=== PATIENT | female | born 1990 | race Caucasian/White ===

== ENCOUNTER 2016-09-11 17:08 | Emergency (ER) | payer BC, OTHER ==
[2016-09-11 17:31] VITALS: BP 135/79; PULSE 97; RESP 18; TEMP 97.6
--- NOTE | 2016-09-11 17:41 | ED ---
Skin/Abscess/FB HPI - General Chief complaint: Skin/Abscess/Foreign Body Stated complaint: POSS PSORIASIS INFECTION, ENFLAMED Time Seen by Provider: 09/11/16 17:20 Source: patient, RN notes reviewed Mode of arrival: ambulatory Limitations: no limitations - History of Present Illness Initial comments: 26 yo female presents to the ER with cc of right foot redness and swelling. Patient states this started last 2 days. She has noticed some swelling. Patient states that it is somewhat painful. She does have psoriasis but states that she has some yellowing of the plaques over the right ankle. Patient states she hasn't noticed any purulent drainage. Family states they're concerned due to the increased redness of the area so they thought that they should be evaluated. Patient has had no fever or chills. There is no calf pain with this. She has a history of this in the past. Patient denies any recent fever, chills, shortness of breath, chest pain, back pain, abdominal pain , nausea vomiting, numbness or tingling, dysuria or hematuria, constipation or diarrhea, headaches or visual changes, or any other current symptoms. - Related Data Previous Rx's Medication Instructions Recorded Cephalexin [Keflex] 500 mg PO Q6HR #40 cap 09/11/16 Allergies Allergy/AdvReac Type Severity Reaction Status Date / Time Penicillins Allergy Unknown Verified 09/11/16 17:31 Review of Systems ROS Statement: Those systems with pertinent positive or pertinent negative responses have been documented in the HPI. ROS Other: All systems not noted in ROS Statement are negative. 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 Absent: tenderness, meningismus, lymphadenopathy Respiratory exam: Present: normal lung sounds bilaterally. Absent: respiratory distress, wheezes, rales, rhonchi, stridor Cardiovascular Exam: Present: regular rate, normal rhythm, normal heart sounds. Absent: systolic murmur, diastolic murmur, rubs, gallop, clicks Neurological exam: Present: alert, oriented X3, CN II-XII intact. Absent: motor sensory deficit Psychiatric exam: Present: normal affect, normal mood Skin exam: Present: warm, dry, other (Patient appears to have redness and crusting to the right ankle. There does appear to be minimal swelling to the right foot noted. Patient does have extensive psoriasis throughout) Course Vital Signs 09/11/16 17:27 Temperature 97.6 F Pulse Rate 97 Respiratory 18 Rate Blood Pressure 135/79 O2 Sat by Pulse 100 Oximetry Medical Decision Making - Medical Decision Making 26-year-old female presents to emergency room with what is concerning for possible cellulitis associated psoriasis to the right ankle. This we will add Keflex the patient's treatment. She does have follow-up for her psoriasis. We discussed. We discussed return parameters with watch for. Patient stated they understood and all questions have been answered. They will be discharged. Disposition Clinical Impression: Cellulitis of right ankle Disposition: HOME SELF-CARE Condition: Stable Instructions: Cellulitis (ED) Additional Instructions: Please use medication as discussed. Please follow up with family doctor if symptoms have not improved over the next two days. Please return to the emergency room if your symptoms increase or worsen or for any other concerns. Prescriptions: Cephalexin [Keflex] 500 mg PO Q6HR #40 cap Referrals: Mervin Mills DO [Primary Care Provider] - 1-2 days Time of Disposition: 17:40
== END 2016-09-11 17:53 | disposition home or self-care (01) ==
LOC: EC 17:08
DX: L03.115 Cellulitis of right lower limb (principal); F17.200 Nicotine dependence, unspecified, uncomplicated; Z88.0 Allergy status to penicillin
CPT/HCPCS: 99283

== ENCOUNTER 2016-09-18 21:01 | Emergency (ER) | payer OTHER ==
[2016-09-18 21:17] VITALS: BP 125/71; PULSE 94; RESP 18; TEMP 97
--- NOTE | 2016-09-18 21:53 | ED ---
General Adult HPI - General Chief complaint: Skin/Abscess/Foreign Body Stated complaint: foot pain-revisit Time Seen by Provider: 09/18/16 21:26 Source: patient, family, RN notes reviewed Mode of arrival: ambulatory Limitations: no limitations - History of Present Illness Initial comments: Patient 26-year-old female was seen a few past medical history for psoriasis, who presents emergency room today with a chief complaint of possible infection to the room the right ankle. Patient does admit that she was seen here the emergency room a week ago and started on Keflex to cover for a cellulitis infection. She states it has been some improvement of the swelling but still having increased pain in the redness is still present. States she's concerned. Patient states she does not want to get any worse. She denies any other complaints or symptoms. Patient denies any recent fever, chills, shortness of breath, chest pain, back pain, abdominal pain, nausea or vomiting, numbness or tingling, dysuria or hematuria, constipation or diarrhea, headaches or visual changes, or any other complaints. - Related Data Home Medications Medication Instructions Recorded Confirmed Calcipotriene 1 applic TOPICAL QAM 09/18/16 09/18/16 Minocycline HCl [Minocin] 100 mg PO DAILY 09/18/16 09/18/16 Venlafaxine HCl [Effexor XR] 75 mg PO DAILY 09/18/16 09/18/16 Previous Rx's Medication Instructions Recorded Cephalexin [Keflex] 500 mg PO Q6HR #40 cap 09/11/16 Hydrocodone/Acetaminophen [[place] 1 each PO HS PRN #6 tab 09/18/16 5-325] Mupirocin 2% Oint [Bactroban Oint] 1 applic TOPICAL TID #1 gm 09/18/16 Allergies Allergy/AdvReac Type Severity Reaction Status Date / Time latex Allergy Rash/Hives Verified 09/18/16 21:45 Penicillins Allergy Rash/Hives Verified 09/18/16 21:45 Review of Systems ROS Statement: Those systems with pertinent positive or pertinent negative responses have been documented in the HPI. ROS Other: All systems not noted in ROS Statement are negative. 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 Eye: Pupils are equal, round and reactive to light, extra-ocular movements are intact. No nystagmus. There is normal conjunctiva bilaterally. No signs of icterus. Ears, nose, mouth and throat: There are moist mucous membranes and no oral lesions. Neck: The neck is supple, there is no tenderness or JVD. Cardiovascular: There is a regular rate and rhythm. No murmur, rub or gallop is appreciated. Respiratory: Lungs are clear to auscultation, respirations are non-labored, breath sounds are equal. No wheezes, stridor, rales, or rhonchi. Musculoskeletal: Normal ROM, no tenderness. Strength 5/5. Sensation intact. Pulses equal bilaterally 2+. Neurological: A&O x 3. CN II-XII intact, There are no obvious motor or sensory deficits. Coordination appears grossly intact. Speech is normal. Skin: Psoriasis patches throughout the body. Increased redness and skin breakdown to the right ankle area. There is no lymphangitic streaking. There is no drainage or weeping. Warmth. Psychiatric: Cooperative, appropriate mood & affect, normal judgment. Limitations: no limitations Course Vital Signs 09/18/16 21:12 Temperature 97 F L Pulse Rate 94 Respiratory 18 Rate Blood Pressure 125/71 O2 Sat by Pulse 97 Oximetry Medical Decision Making - Medical Decision Making At this time patient's been on Keflex. There does appear to be possible secondary infection. Start patient on a topical antibiotics. Did describe this with patient about treatments at this time and not wanting to change antibiotic completely. Advised to use topical antibiotics if there is improvement over the next 2 days. Advised patient to elevate at least 3 times daily. Advised to return if symptoms are not improving or if symptoms increase or worsen. Disposition Clinical Impression: Cellulitis Disposition: HOME SELF-CARE Condition: Good Instructions: Cellulitis (ED) Additional Instructions: Please use medication as discussed. Please follow-up with family doctor in the next 2 days of symptoms have not improved. Please return to emergency room if the symptoms increase or worsen or for any other concerns. Prescriptions: Hydrocodone/Acetaminophen [[place] 5-325] 1 each PO HS PRN #6 tab PRN Reason: Pain Mupirocin 2% Oint [Bactroban Oint] 1 applic TOPICAL TID #1 gm Time of Disposition: 21:52
== END 2016-09-18 22:01 | disposition home or self-care (01) ==
LOC: EC 21:01
DX: L03.115 Cellulitis of right lower limb (principal); L40.9 Psoriasis, unspecified; F32.9 Major depressive disorder, single episode, unspecified; F41.9 Anxiety disorder, unspecified; F17.200 Nicotine dependence, unspecified, uncomplicated; Z79.899 Other long term (current) drug therapy; Z91.040 Latex allergy status; Z88.0 Allergy status to penicillin
CPT/HCPCS: 99283

== ENCOUNTER 2016-09-25 17:08 | Emergency (ER) | payer OTHER ==
[2016-09-25 17:15] VITALS: RESP 16; TEMP 97
--- NOTE | 2016-09-25 17:57 | ED ---
Skin/Abscess/FB HPI <Desmond Acharya - Last Filed: 09/25/16 18:15> - General Source: patient, RN notes reviewed Mode of arrival: wheelchair Limitations: no limitations <Lana Grimaldo - Last Filed: 09/25/16 23:50> - General Chief complaint: Skin/Abscess/Foreign Body Stated complaint: poss infection on rt foot Time Seen by Provider: 09/25/16 17:27 - History of Present Illness Initial comments: Patient's 26-year-old female presents to the emergency room for evaluation of right lower extremity pain and swelling. Patient states she's had a flare of psoriasis for the past few weeks. Patient states she was here 2 weeks ago for right ankle pain and swelling and was given Keflex for secondary infection from her psoriasis. Patient states she took the antibiotic it wasn't getting any better so she came back here again last week. Patient states she was then placed on mupirocin ointment. Patient states mupirocin ointment slightly relieved her symptoms but she ran out. Patient states she has a history of leukemia. Patient states no one in this area will see her for treatment due to her medical history. Patient states she has an appointment at [facility] on the . Patient states she woke up this morning with worsening pain and thought she should be seen. Patient denies fevers, chills, chest pain, nausea, vomiting, calf pain, numbness or tingling in her toes. Patient states the plaques on her ankle are getting worse and causing her worsening pain on the medial portion of her ankle. (Lana Grimaldo) - Related Data Home Medications Medication Instructions Recorded Confirmed Minocycline HCl [Minocin] 100 mg PO DAILY 09/18/16 09/18/16 Hydrocodone/Acetaminophen [[place] 1 tab PO HS PRN 09/25/16 09/25/16 5-325] Previous Rx's Medication Instructions Recorded Mupirocin 2% Oint [Bactroban 2% 1 applic TOPICAL TID 14 Days 09/25/16 Oint] Allergies Allergy/AdvReac Type Severity Reaction Status Date / Time latex Allergy Rash/Hives Verified 09/25/16 18:04 Penicillins Allergy Rash/Hives Verified 09/25/16 18:04 Review of Systems ROS Other: All systems not noted in ROS Statement are negative. <Desmond Acharya - Last Filed: 09/25/16 18:15> ROS Other: All systems not noted in ROS Statement are negative. <Lana Grimaldo - Last Filed: 09/25/16 23:50> ROS Statement: Those systems with pertinent positive or pertinent negative responses have been documented in the HPI. 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, ALL, psorosis History of Any Multi-Drug Resistant Organisms: None Reported Past Surgical History: Tonsillectomy Past Psychological History: Anxiety, Depression Smoking Status: Current every day smoker Past Alcohol Use History: Occasional Past Drug Use History: Marijuana <Laan Grimaldo - Last Filed: 09/25/16 23:50> General Exam <MarckDesmond - Last Filed: 09/25/16 18:15> Limitations: no limitations General appearance: alert, in no apparent distress Head exam: Present: atraumatic, normocephalic, normal inspection Eye exam: Present: normal appearance ENT exam: Present: normal exam Neck exam: Present: normal inspection Respiratory exam: Present: normal lung sounds bilaterally. Absent: respiratory distress Cardiovascular Exam: Present: regular rate, normal rhythm, normal heart sounds Extremities exam: Present: normal inspection Back exam: Present: normal inspection Neurological exam: Present: alert, oriented X3, CN II-XII intact, normal gait Psychiatric exam: Present: normal affect, normal mood Skin exam: Present: warm, dry, other (Extensive psoriasis over bilateral arms, chest, abdomen, back and legs. Extensive cracking plaques over anterior/medial/ lateral right ankle. No signs of cellulitis noted. Capillary refill less than 2 seconds. No calf pain.) <Lana Grimaldo - Last Filed: 09/25/16 23:50> - General Exam Comments Initial Comments: Sitting in exam room, no acute distress. (Lana Griamldo) Course <Desmond Acharya - Last Filed: 09/25/16 18:15> <Lana Grimaldo - Last Filed: 09/25/16 23:50> Vital Signs 09/25/16 09/25/16 17:12 18:23 Temperature 97.0 F L Pulse Rate 103 H 78 Respiratory 16 16 Rate Blood Pressure 127/66 145/78 O2 Sat by Pulse 98 99 Oximetry - Reevaluation(s) Reevaluation #1: 09/25/16 18:14 I did personally evaluate the patient did discuss findings with her mother. Patient does demonstrate plaque psoriasis she does have evidence of chronic skin changes to the right ankle. I decided is no evidence of any secondary infection though a minor one cannot be totally ruled out. There is evidence of cracked skin. 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 Patient does have a follow-up appointment at [facility] and the of this month. In the meantime she'll be given topical medication for the foot she is return when necessary I also did recommend elevation of the foot as much as possible. A limited weightbearing (Desmond Acharya) Medical Decision Making <Desmond Acharya - Last Filed: 09/25/16 18:15> <Lana Grimaldo - Last Filed: 09/25/16 23:50> - Medical Decision Making Patient is a 26-year-old female presents emergency room for evaluation of worsening right ankle psoriasis. Patient does have extensive psoriasis over her entire body. Patient's states that no one will see her in this area due to her history of leukemia. Patient states she has an appointment with a specialist on October 05. Advised patient to apply Eucerin cream. Agreed to send patient home with another prescription for Bactroban that she can apply also advised patient to elevate her leg as much as possible. Dr. Acharya also evaluated patient and agrees with treatment plan. Patient states she understands everything that was discussed with her. Return parameters discussed. (Lana Grimaldo) Disposition <Desmond Acharya - Last Filed: 09/25/16 18:15> Time of Disposition: 18:01 <Lana Grimaldo - Last Filed: 09/25/16 23:50> Clinical Impression: Plaque psoriasis Disposition: HOME SELF-CARE Condition: Good Instructions: Psoriasis (ED) Additional Instructions: Apply mupirocin ointment as directed. Can also apply [id number] Eucerin cream. Keep ankle elevated as much as possible. Please follow up with primary care provider in 1-2 days. If any new symptom arises or symptoms worsen, return to ER as soon as possible. Prescriptions: Mupirocin 2% Oint [Bactroban 2% Oint] 1 applic TOPICAL TID 14 Days Referrals: Mervin Mills DO [Primary Care Provider] - 1-2 days
[2016-09-25 18:26] VITALS: BP 145/78; PULSE 78
== END 2016-09-25 18:26 | disposition home or self-care (01) ==
LOC: EC 17:08
DX: L40.0 Psoriasis vulgaris (principal); F17.200 Nicotine dependence, unspecified, uncomplicated; Z91.040 Latex allergy status; Z88.0 Allergy status to penicillin; Z85.6 Personal history of leukemia
CPT/HCPCS: 99283

== ENCOUNTER 2017-06-15 18:21 | Emergency (ER) | payer MEDICAID, OTHER ==
--- NOTE | 2017-06-15 19:03 | ED ---
General Adult HPI - General Chief complaint: Abdominal Pain Stated complaint: Abdominal pain Time Seen by Provider: 06/15/17 18:53 Source: patient, RN notes reviewed Mode of arrival: ambulatory Limitations: no limitations - History of Present Illness Initial comments: 27-year-old female presents to the emergency department with a chief complaint of right upper quadrant abdominal pain. She has had this pain on and off for the last month or so. She states that she's had episodes nausea vomiting and chills on and off with it as well. She states food seems to make the pain worse. She is also had diarrhea with it. She states that she follow-up with her doctor was scheduled for an ultrasound out patiently but she states today the pain just seems to be worse so she thought that she should be seen. Patient denies any surgeries on the abdomen in the past. She states that she has not had any cough cold like symptoms with this or any urinary complaints. She was concerned due to her continued symptoms so she thought that she should be in. Patient denies any recent fever, chills, shortness of breath, chest pain , back pain, numbness or tingling, dysuria or hematuria, constipation or diarrhea, headaches or visual changes, or any other current symptoms. - Related Data Home Medications Medication Instructions Recorded Confirmed Ibuprofen [Motrin Ib] 200 - 400 mg PO Q6H PRN 06/15/17 06/15/17 LORazepam [Ativan] 0.5 mg PO HS PRN 06/15/17 06/15/17 Venlafaxine HCl [Effexor XR] 75 mg PO DAILY 06/15/17 06/15/17 Allergies Allergy/AdvReac Type Severity Reaction Status Date / Time latex Allergy Rash/Hives Verified 06/15/17 19:16 Penicillins Allergy Rash/Hives Verified 06/15/17 19:16 Review of Systems ROS Statement: Those systems with pertinent positive or pertinent negative responses have been documented in the HPI. ROS Other: All systems not noted in ROS Statement are negative. 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 Eye: Pupils are equal, round and reactive to light. Ears, nose, mouth and throat: There are moist mucous membranes. Neck: The neck is supple, there is no tenderness. Cardiovascular: There is a regular rate and rhythm. No murmur, rub or gallop is appreciated. Respiratory: Lungs are clear to auscultation, respirations are non-labored, breath sounds are equal. No wheezes, stridor, rales, or rhonchi. Gastrointestinal: Soft, non-distended, non-tender abdomen without masses or organomegaly noted. There is no rebound or guarding present. No CVA tenderness. Bowel sounds are unremarkable. Back: There is no tenderness to palpation in the midline. There is no obvious deformity. No rashes noted. Musculoskeletal: Normal ROM, no tenderness, There is no pedal edema. There is no calf tenderness or swelling. Sensation intact. Pulses equal bilaterally 2+. Neurological: CN II-XII intact, There are no obvious motor or sensory deficits. Coordination appears grossly intact. Speech is normal. Skin: Skin is warm and dry and no rashes or lesions are noted. Psychiatric: Cooperative, appropriate mood & affect, normal judgment. Limitations: no limitations Course Vital Signs 06/15/17 18:22 Temperature 98.5 F Pulse Rate 111 H Respiratory 18 Rate Blood Pressure 137/91 O2 Sat by Pulse 96 Oximetry Medical Decision Making - Medical Decision Making 27-year-old female presents to the emergency department with a chief complaint of right upper quadrant abdominal pain. At this time patient's results of been reviewed. We did discuss that her alcoholism is most likely causing her hepatomegaly an elevated liver enzymes. We did discuss that she needs to follow -up with her doctor we did give her follow-up to GI. We did discuss the importance of alcohol the risks of continuing to drink. We offered her rehab forearms as well as Librium but the patient states she does not need this. At this time the patient will be discharged home. We are pending a hepatitis panel but she states she was recently tested and everything came back normal. Patient does understand return parameters and follow-up. This time she'll be discharged. - Lab Data Result diagrams: 06/15/17 19:12 06/15/17 19:12 Lab Results 06/15/17 06/15/17 06/15/17 Range/Units 19:12 19:12 19:12 WBC 9.1 (3.8-10.6) k/uL RBC 4.85 (3.80-5.40) m/uL Hgb 15.9 (11.4-16.0) gm/dL Hct 49.7 H (34.0-46.0) % MCV 102.5 H (80.0-100.0) fL MCH 32.8 (25.0-35.0) pg MCHC 32.0 (31.0-37.0) g/dL RDW 14.2 (11.5-15.5) % Plt Count 334 (150-450) k/uL Neutrophils % 50 % Lymphocytes % 37 % Monocytes % 5 % Eosinophils % 4 % Basophils % 1 % Neutrophils # 4.6 (1.3-7.7) k/uL Lymphocytes # 3.3 (1.0-4.8) k/uL Monocytes # 0.5 (0-1.0) k/uL Eosinophils # 0.4 (0-0.7) k/uL Basophils # 0.1 (0-0.2) k/uL Macrocytosis Slight Sodium 147 H (137-145) mmol/L Potassium 3.7 (3.5-5.1) mmol/L Chloride 106 (98-107) mmol/L Carbon Dioxide 22 (22-30) mmol/L Anion Gap 19 mmol/L BUN 4 L (7-17) mg/dL Creatinine 0.64 (0.52-1.04) mg/dL Est GFR (MDRD) Af Amer >60 (>60 ml/min/1.73 sqM) Est GFR (MDRD) Non-Af >60 (>60 ml/min/1.73 sqM) Glucose 147 H (74-99) mg/dL Calcium 9.9 (8.4-10.2) mg/dL Total Bilirubin 0.6 (0.2-1.3) mg/dL AST 155 H (14-36) U/L ALT 103 H (9-52) U/L Alkaline Phosphatase 112 (38-126) U/L Total Protein 8.0 (6.3-8.2) g/dL Albumin 4.7 (3.5-5.0) g/dL Amylase 47 (30-110) U/L Lipase 120 (23-300) U/L Urine Color Urine Appearance (Clear) Urine pH (5.0-8.0) Ur Specific [place] (1.001-1.035) Urine Protein (Negative) Urine Glucose (UA) (Negative) Urine Ketones (Negative) Urine Blood (Negative) Urine Nitrite (Negative) Urine Bilirubin (Negative) Urine Urobilinogen (<2.0) mg/dL Ur Leukocyte Esterase (Negative) Urine RBC (0-5) /hpf Urine WBC (0-5) /hpf Ur Squamous Epith Cells (0-4) /hpf Urine HCG, Qual Not Detected (Not Detectd) Serum Alcohol 283 mg/dL 06/15/17 Range/Units 19:12 WBC (3.8-10.6) k/uL RBC (3.80-5.40) m/uL Hgb (11.4-16.0) gm/dL Hct (34.0-46.0) % MCV (80.0-100.0) fL MCH (25.0-35.0) pg MCHC (31.0-37.0) g/dL RDW (11.5-15.5) % Plt Count (150-450) k/uL Neutrophils % % Lymphocytes % % Monocytes % % Eosinophils % % Basophils % % Neutrophils # (1.3-7.7) k/uL Lymphocytes # (1.0-4.8) k/uL Monocytes # (0-1.0) k/uL Eosinophils # (0-0.7) k/uL Basophils # (0-0.2) k/uL Macrocytosis Sodium (137-145) mmol/L Potassium (3.5-5.1) mmol/L Chloride (98-107) mmol/L Carbon Dioxide (22-30) mmol/L Anion Gap mmol/L BUN (7-17) mg/dL Creatinine (0.52-1.04) mg/dL Est GFR (MDRD) Af Amer (>60 ml/min/1.73 sqM) Est GFR (MDRD) Non-Af (>60 ml/min/1.73 sqM) Glucose (74-99) mg/dL Calcium (8.4-10.2) mg/dL Total Bilirubin (0.2-1.3) mg/dL AST (14-36) U/L ALT (9-52) U/L Alkaline Phosphatase (38-126) U/L Total Protein (6.3-8.2) g/dL Albumin (3.5-5.0) g/dL Amylase (30-110) U/L Lipase (23-300) U/L Urine Color Light Yellow Urine Appearance Clear (Clear) Urine pH 5.5 (5.0-8.0) Ur Specific [place] 1.001 (1.001-1.035) Urine Protein Negative (Negative) Urine Glucose (UA) Negative (Negative) Urine Ketones Negative (Negative) Urine Blood Large H (Negative) Urine Nitrite Negative (Negative) Urine Bilirubin Negative (Negative) Urine Urobilinogen <2.0 (<2.0) mg/dL Ur Leukocyte Esterase Negative (Negative) Urine RBC <1 (0-5) /hpf Urine WBC <1 (0-5) /hpf Ur Squamous Epith Cells <1 (0-4) /hpf Urine HCG, Qual (Not Detectd) Serum Alcohol mg/dL - Radiology Data Radiology results: report reviewed, image reviewed Disposition Clinical Impression: Alcoholic hepatitis Disposition: HOME SELF-CARE Condition: Stable Instructions: Alcoholic Hepatitis (ED) Additional Instructions: Please use medication as discussed. Please follow up with family doctor if symptoms have not improved over the next two days. Please return to the emergency room if your symptoms increase or worsen or for any other concerns. Referrals: Jarrett Pereira DO [Primary Care Provider] - 1-2 days Sallie Rocha MD [STAFF PHYSICIAN] - 1-2 days Time of Disposition: 21:55
[2017-06-15 19:33] LABS: Basophils # (A) 0.1 k/uL (0-0.2); Basophils % (A) 1 %; Eosinophils # (A) 0.4 k/uL (0-0.7); Eosinophils % (A) 4 %; HCT 49.7 % (34.0-46.0); HGB 15.9 gm/dL (11.4-16.0); Lymphocytes # (A) 3.3 k/uL (1.0-4.8); Lymphocytes % (A) 37 %; MCH 32.8 pg (25.0-35.0); MCV 102.5 fL (80.0-100.0); Macrocytosis Slight; Mean Platelet Volume 7.3; Monocytes # (A) 0.5 k/uL (0-1.0); Monocytes % (A) 5 %; Neutrophils # (A) 4.6 k/uL (1.3-7.7); Neutrophils % (A) 50 %; Platelet Count 334 k/uL (150-450); RBC 4.85 m/uL (3.80-5.40); RDW 14.2 % (11.5-15.5); WBC 9.1 k/uL (3.8-10.6)
[2017-06-15 19:35] LABS: Appearance,Urine Clear (Clear); Bilirubin,Urine Negative (Negative); Blood,Urine Large (Negative); Color,Urine Light Yellow; Glucose,Urine (UA) Negative (Negative); Ketones,Urine Negative (Negative); Leukocyte Esterase,Urine Negative (Negative); Nitrite,Urine Negative (Negative); PH, Urine 5.5 (5.0-8.0); Protein,Urine Negative (Negative); RBC,Urine <1 /hpf (0-5); Specific Gravity,Urine 1.001 (1.001-1.035); Squamous Epithelial Cell,Urine <1 /hpf (0-4); Urobilinogen,Urine <2.0 mg/dL (<2.0); WBC,Urine <1 /hpf (0-5)
[2017-06-15 19:45] LABS: ALT 103 U/L (9-52); AST 155 U/L (14-36); Albumin 4.7 g/dL (3.5-5.0); Alkaline Phosphatase 112 U/L (38-126); Amylase 47 U/L (30-110); Anion Gap 19 mmol/L; Blood Urea Nitrogen 4 mg/dL (7-17); Calcium 9.9 mg/dL (8.4-10.2); Carbon Dioxide 22 mmol/L (22-30); Chloride 106 mmol/L (98-107); Glucose 147 mg/dL (74-99); Lipase 120 U/L (23-300); Potassium 3.7 mmol/L (3.5-5.1); Sodium 147 mmol/L (137-145); Total Bilirubin 0.6 mg/dL (0.2-1.3)
[2017-06-15 19:49] LABS: Alcohol 283 mg/dL
[2017-06-15] MEDS ORDERED: SODIUM CHLORIDE 0.9% 1,000 ML IV STA (19:57)
--- NOTE | 2017-06-15 21:47 | US ---
EXAMINATION TYPE: US gallbladder DATE OF EXAM: 06/15/2017 COMPARISON: NONE CLINICAL HISTORY: Pain. Intermittent abdomen pain and N/V/D x 1 month, obese patient EXAM MEASUREMENTS: Liver Length: 23.1 cm Gallbladder Wall: 0.2 cm CBD: 0.4 cm Right Kidney: 12.4 x 4.7 x 4.9 cm Difficult and limited study due to patient body habitus. Pancreas: visualized portions wnl, head and tail obscured by overlying midline bowel gas Liver: enlarged at 23.1cm, heterogeneous, increased echogenicity, increased attenuation, decreased v isualization of vessels suggestive of fatty infiltrate Gallbladder: wnl Evidence for sonographic Juárez's sign: yes CBD: visualized portions wnl, limited by overlying bowel gas Right Kidney: wnl . No hydronephrosis. IMPRESSION: NO DEFINITE ACUTE PROCESS, BUT HEPATOMEGALY IS NOTED.
[2017-06-15 22:14] VITALS: BP 153/99; PULSE 107; RESP 20; TEMP 97.1
[2017-06-16 12:52] LABS: Hepatitis A Antibody IgM Non-Reactive (Non-Reactive); Hepatitis B Core IgM Non-Reactive (Non-Reactive)
== END 2017-06-15 22:14 | disposition home or self-care (01) ==
LOC: EC 18:21
DX: K70.10 Alcoholic hepatitis without ascites (principal); R74.8 Abnormal levels of other serum enzymes; F32.9 Major depressive disorder, single episode, unspecified; F41.9 Anxiety disorder, unspecified; F17.200 Nicotine dependence, unspecified, uncomplicated; Z85.6 Personal history of leukemia; Z79.899 Other long term (current) drug therapy; Z88.0 Allergy status to penicillin; Z91.040 Latex allergy status
CPT/HCPCS: 36415; 76705; 80053; 80074; 80320; 81001; 81025; 82150; 83690; 85025; 96360; 99284

== ENCOUNTER → 2017-11-08 | Outpatient (CLI) | payer MEDICAID | END | disposition home or self-care (01) | LOC: LABWHC1 11:54 | PROVIDERS: ATTEND Student in an Organized Health Care Education/Training Program | DX: L40.9 Psoriasis, unspecified (principal) | CPT/HCPCS: 36415 ==

== ENCOUNTER → 2018-03-22 | Outpatient (CLI) | payer MEDICAID ==
--- NOTE | 2018-03-24 13:34 | MR ---
EXAMINATION TYPE: MR brain wo/w con DATE OF EXAM: 03/22/2018 COMPARISON: None HISTORY: PAPILLEDEMA CONTRAST: Performed utilizing 11 mL intravenous Gadavist gadolinium contrast. TECHNIQUE: Multiplanar, multiecho imaging on a 3.0 Mary Kay magnet is performed through the brain. Stud y is performed within 24 hours of arrival to the hospital. The craniovertebral junction is normal. The pituitary is normal. Orbits as visualized appear symmet rical. Intraconal and extraconal fat appears normal. Optic nerves appear normal as visualized. Globes are symmetrical. Diffusion-weighted imaging is performed. No abnormal hyperintensity is present to suggest an acute i ntracranial infarct or acute ischemic change. Signal within the brain appears normal. There is an extra-axial area of slight increased density inferior to the right temporal lobe. This is best visualized series 401 image is 8-9. This area measures approximately 0.5 cm. Is in the expected region of some vascular structures. Aneurysm is not excluded. Recommend MRA [place] for add itional evaluation. Obvious aneurysm on the postcontrast images is not evident. Suprasellar cistern appears normal. Optic chiasm is visualized appears normal. Normal vascular flow voids present in the remaining vascular structures. Ventricles and sulci are appropriate for the patient age. There is mild mucosal thickening through ethmoid air cells and maxillary sinuses. Air-fluid levels ar e not identified. IMPRESSIONS: 1. Heterogenous hyperintensity within the inferior right middle cranial fossa. Recommend MRA to evalu ate for possible aneurysm. 2. Suspicious abnormality to account for papilledema is not identified.
== END ==
LOC: RADMRIMAIN 14:47
PROVIDERS: ATTEND Ophthalmology
DX: G93.2 Benign intracranial hypertension (principal)
CPT/HCPCS: 70553; A9585

== ENCOUNTER → 2018-03-29 | Outpatient (CLI) | payer MEDICAID ==
--- NOTE | 2018-03-29 15:13 | MR ---
EXAMINATION TYPE: MR angio head wo con DATE OF EXAM: 03/29/2018 3:05 PM COMPARISON: NONE HISTORY: HX of Leukemia Three-dimensional [id number] intracranial MRA was performed with multiple intensity projection im ages submitted and source data reviewed at the workstation. The vertebrobasilar system as well as intracranial portions of the internal carotid arteries and thei r major tributaries are patent. I do not see evidence for sizable aneurysm or vascular malformation. IMPRESSION: Normal study.
== END ==
LOC: RADMRIMAIN 14:39
PROVIDERS: ATTEND Ophthalmology
DX: I67.1 Cerebral aneurysm, nonruptured (principal)
CPT/HCPCS: 70544

== ENCOUNTER 2018-04-20 13:08 | Emergency (ER) | payer MEDICAID ==
[2018-04-20 13:22] VITALS: RESP 18
--- NOTE | 2018-04-20 14:27 | ED ---
General Adult HPI - General Chief complaint: Neuro Symptoms/Deficit Stated complaint: Double Vision Source: patient Mode of arrival: ambulatory Limitations: no limitations - History of Present Illness Initial comments: Dictation was produced using [employer] dictation software. please excuse any grammatical, word or spelling errors. Chief Complaint: 28-year-old female who was brought in by her mother for vision changes. History of Present Illness: Patient is 28-year-old female who was brought in by her mother for vision changes. Patient has been having vision changes for several days now. She has been seen in the hospital. She was referred to neurology. She had extensive workup for her symptoms. She has seen the slot technician. She has a scheduled with her neurologist. She is brought in by mother for concerns of changes in vision. States that she's had an episode where she was seeing double. Patient was drinking alcohol and smoking marijuana last night. 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 Has tickets Movement across her field of vision she states she had a brief episode of double vision. She has no other complaints. She does not feel ataxic. Patient has no other neuro deficits. The ROS documented in this emergency department record has been reviewed and confirmed by me. Those systems with pertinent positive or negative responses have been documented in the HPI. All other systems are other negative and/or noncontributory. - Related Data Home Medications Medication Instructions Recorded Confirmed Ibuprofen [Motrin Ib] 200 - 400 mg PO Q6H PRN 06/15/17 06/15/17 LORazepam [Ativan] 0.5 mg PO HS PRN 06/15/17 06/15/17 Venlafaxine HCl [Effexor XR] 75 mg PO DAILY 06/15/17 06/15/17 Previous Rx's Medication Instructions Recorded Meclizine [Antivert] 25 mg PO TID PRN #12 tab 04/20/18 Allergies Allergy/AdvReac Type Severity Reaction Status Date / Time latex Allergy Rash/Hives Verified 04/20/18 13:18 Penicillins Allergy Rash/Hives Verified 04/20/18 13:18 Review of Systems ROS Statement: Those systems with pertinent positive or pertinent negative responses have been documented in the HPI. ROS Other: All systems not noted in ROS Statement are negative. Past Medical History Past Medical History: Cancer, Rheumatoid Arthritis (RA) Additional Past Medical History / Comment(s): leukemia, ALL, psoriaosis History of Any Multi-Drug Resistant Organisms: None Reported Past Surgical History: Tonsillectomy Past Psychological History: Anxiety, Depression Smoking Status: Former smoker Past Alcohol Use History: Occasional Past Drug Use History: Marijuana General Exam - General Exam Comments Initial Comments: PHYSICAL EXAM: General Impression: Alert and oriented x3, not in acute distress HEENT: Normocephalic atraumatic, extra-ocular movements intact, pupils equal and reactive to light bilaterally, mucous membranes moist, fatigable nystagmus Cardiovascular: Heart regular rate and rhythm, S1&S2 audible, no murmurs, rubs or gallops Chest: Lungs clear to auscultation bilaterally, no rhonchi, no wheeze, no rales Abdomen: Bowel sounds present, abdomen soft, non-tender, non-distended, no organomegaly Musculoskeletal: Pulses present and equal in all extremities, no peripheral edema Motor: Power 5/5 bilaterally, no focal deficits noted Neurological: CN II-XII grossly intact, no focal motor or sensory deficits noted Skin: Intact with no visualized rashes Psych: Normal affect and mood Gait: No ataxia Limitations: no limitations Course Vital Signs 04/20/18 13:18 Temperature 97.6 F Pulse Rate 95 Respiratory 18 Rate Blood Pressure 124/85 O2 Sat by Pulse 95 Oximetry Medical Decision Making - Medical Decision Making ED course: 28-year-old female with extensive workup performed for her vision changes presents with double vision. No double vision noted objectively. Patient does not have findings diplopia. Extraocular muscles are intact. Vital signs are stable. Patient denies any headache. Patient has no other complaints. Patient had MRI and MRA performed which did not show any acute processes. She does have a scheduled appointment with her neurologist early next week. At this point there appears to be no benefit in performing further tests. Patient does have some red beating nystagmus however it's fatigable. Patient be given prescription for meclizine when necessary dizziness. She is advised to maintain appointment with the specialist. Patient be discharged. Disposition Clinical Impression: Diplopia Disposition: HOME SELF-CARE Condition: Good Instructions: Diplopia (ED) Prescriptions: Meclizine [Antivert] 25 mg PO TID PRN #12 tab PRN Reason: Nausea Is patient prescribed a controlled substance at d/c from ED?: No Referrals: Jarrett Pereira DO [Primary Care Provider] - 1-2 days Time of Disposition: 14:27
[2018-04-20 14:58] VITALS: BP 129/87; PULSE 96; TEMP 97.9
== END 2018-04-20 14:53 | disposition home or self-care (01) ==
LOC: EC 13:08
DX: H53.2 Diplopia (principal); F12.90 Cannabis use, unspecified, uncomplicated; F32.9 Major depressive disorder, single episode, unspecified; F41.9 Anxiety disorder, unspecified; Z87.891 Personal history of nicotine dependence; Z88.0 Allergy status to penicillin; Z91.040 Latex allergy status; Z79.899 Other long term (current) drug therapy; Z85.6 Personal history of leukemia
CPT/HCPCS: 99283

== ENCOUNTER → 2019-12-11 | Outpatient (CLI) | payer BC ==
[2019-12-11 11:47] LABS: Basophils # (A) 0.1 k/uL (0-0.2); Basophils % (A) 1 %; Eosinophils # (A) 0.4 k/uL (0-0.7); Eosinophils % (A) 5 %; HCT 48.5 % (34.0-46.0); HGB 15.8 gm/dL (11.4-16.0); Lymphocytes # (A) 2.6 k/uL (1.0-4.8); Lymphocytes % (A) 28 %; MCH 33.1 pg (25.0-35.0); MCHC 32.5 g/dL (31.0-37.0); MCV 101.8 fL (80.0-100.0); Mean Platelet Volume 6.7; Monocytes # (A) 0.4 k/uL (0-1.0); Monocytes % (A) 4 %; Neutrophils # (A) 5.5 k/uL (1.3-7.7); Neutrophils % (A) 60 %; Platelet Count 324 k/uL (150-450); RBC 4.76 m/uL (3.80-5.40); RDW 12.7 % (11.5-15.5); WBC 9.1 k/uL (3.8-10.6)
[2019-12-11 11:51] LABS: Appearance,Urine Clear (Clear); Bilirubin,Urine Negative (Negative); Blood,Urine Trace (Negative); Color,Urine Yellow; Glucose,Urine (UA) Negative (Negative); Hyaline Casts,Urine 1 /lpf (0-2); Ketones,Urine Negative (Negative); Leukocyte Esterase,Urine Negative (Negative); Mucus,Urine Occasional /hpf; Nitrite,Urine Negative (Negative); PH, Urine 5.5 (5.0-8.0); Protein,Urine Negative (Negative); RBC,Urine 2 /hpf (0-5); Specific Gravity,Urine 1.022 (1.001-1.035); Squamous Epithelial Cell,Urine 1 /hpf (0-4); Urobilinogen,Urine <2.0 mg/dL (<2.0); WBC,Urine <1 /hpf (0-5)
[2019-12-11 21:07] LABS: African American GFR (CKD) 144.8 (60.0-200.0); Albumin 4.3 g/dL (3.80-4.90); Albumin/Globulin Ratio 1.65 (1.60-3.17); BUN/Creat Ratio 18.33 Ratio (12.00-20.00); Calcium 9.3 mg/dL (8.7-10.3); Chol/HDL Ratio 6.06; Globulin 2.6 g/dL (1.6-3.3); LDL Cholesterol,Calculated 160.4 mg/dL (0.0-131.0); Non-African American GFR(CKD) 124.9 (60.0-200.0); Potassium 4.8 mmol/L (3.5-5.5); Total Bilirubin 0.4 mg/dL (0.3-1.2); Total Protein 6.9 g/dL (6.2-8.2); VLDL Calculation 21.6 mg/dL (5.00-40.00)
[2019-12-11 23:31] LABS: Hemoglobin A1C 5.6 % (4.0-6.0)
== END | disposition home or self-care (01) ==
LOC: LABWHC1 11:07
PROVIDERS: ATTEND Family Medicine
DX: Z00.00 Encounter for general adult medical examination without abnormal findings (principal)
CPT/HCPCS: 36415; 80053; 80061; 81001; 83036; 84443; 85025

== ENCOUNTER → 2020-04-16 | Outpatient (CLI) | payer BC ==
[2020-04-16 09:01] LABS: Basophils # (A) 0.1 k/uL (0-0.2); Basophils % (A) 1 %; Eosinophils # (A) 0.4 k/uL (0-0.7); Eosinophils % (A) 4 %; HCT 44.6 % (34.0-46.0); HGB 13.9 gm/dL (11.4-16.0); Lymphocytes # (A) 2.5 k/uL (1.0-4.8); Lymphocytes % (A) 23 %; MCH 30.7 pg (25.0-35.0); MCHC 31.1 g/dL (31.0-37.0); MCV 98.7 fL (80.0-100.0); Mean Platelet Volume 6.6; Monocytes # (A) 0.5 k/uL (0-1.0); Monocytes % (A) 5 %; Neutrophils # (A) 7.2 k/uL (1.3-7.7); Neutrophils % (A) 67 %; Platelet Count 423 k/uL (150-450); RBC 4.52 m/uL (3.80-5.40); RDW 13.8 % (11.5-15.5); WBC 10.8 k/uL (3.8-10.6)
[2020-04-16 15:36] LABS: African American GFR (CKD) 143.8 (60.0-200.0); Albumin 4.1 g/dL (3.80-4.90); Albumin/Globulin Ratio 1.64 (1.60-3.17); Anion Gap 3.6 mmol/L (4.00-12.00); BUN/Creat Ratio 18.33 Ratio (12.00-20.00); Bilirubin, Conjugated 0.2 mg/dL (0.20-0.40); Carbon Dioxide 26.4 mmol/L (21.6-31.8); Globulin 2.5 g/dL (1.6-3.3); Potassium 4.6 mmol/L (3.5-5.5); Total Bilirubin 0.4 mg/dL (0.3-1.2); Total Protein 6.6 g/dL (6.2-8.2)
== END | disposition home or self-care (01) ==
LOC: LABWHC1 08:08
PROVIDERS: ATTEND Physician Assistant
DX: R10.11 Right upper quadrant pain (principal); R19.7 Diarrhea, unspecified
CPT/HCPCS: 36415; 80053; 82150; 83690; 85025

== ENCOUNTER → 2020-04-16 | Outpatient (CLI) | payer BC ==
--- NOTE | 2020-04-16 13:07 | US ---
EXAMINATION TYPE: US gallbladder DATE OF EXAM: 04/16/2020 COMPARISON: NONE CLINICAL HISTORY: R10.11 RUQ PAIN. RUQ pain, diarrhea for 2 weeks EXAM MEASUREMENTS: Liver Length: 18.4 cm Gallbladder Wall: 0.2 cm CBD: 0.4 cm Right Kidney: 12.5 x 4.3 x 5.2 cm Pancreas: Obscured by bowel gas Liver: enlarged, heterogeneous Gallbladder: no evidence of stones Evidence for sonographic Juárez's sign: no CBD: wnl Right Kidney: no evidence of hydronephrosis IMPRESSION: Hepatomegaly
== END | disposition home or self-care (01) ==
LOC: RADUSWWP 07:37
PROVIDERS: ATTEND Family Medicine
DX: R16.0 Hepatomegaly, not elsewhere classified (principal)
CPT/HCPCS: 76705

== ENCOUNTER → 2020-04-22 | Outpatient (CLI) | payer BC ==
--- NOTE | 2020-04-22 11:51 | XR ---
EXAMINATION TYPE: XR sacroiliac joint comp BILAT DATE OF EXAM: 04/22/2020 COMPARISON: NONE HISTORY: Sacroiliitis per order. Chronic pain, history of psoriatic arthritis. History of abnormal x- ray 2017. TECHNIQUE: Frontal and oblique images of the bilateral sacroiliac joints. FINDINGS: There is mild narrowing especially inferiorly of the bilateral sacroiliac joints with surro unding sclerosis. No significant spurring. Overlying soft tissue shows left-sided pelvic phleboliths. IMPRESSION: As above. Prior study for correlation for stability or progression unavailable at time of dictation.
== END | disposition home or self-care (01) ==
LOC: RADXRMAIN 10:46
DX: M53.3 Sacrococcygeal disorders, not elsewhere classified (principal); I87.8 Other specified disorders of veins; Z88.0 Allergy status to penicillin; Z91.09 Other allergy status, other than to drugs and biological substances; Z88.8 Allergy status to other drugs, medicaments and biological substances
CPT/HCPCS: 72202

== ENCOUNTER → 2020-05-03 | Outpatient (CLI) | payer BC ==
[2020-05-03 10:03] LABS: Basophils # (A) 0.1 k/uL (0-0.2); Basophils % (A) 1 %; Eosinophils # (A) 0.3 k/uL (0-0.7); Eosinophils % (A) 3 %; HCT 46.7 % (34.0-46.0); Lymphocytes # (A) 2.8 k/uL (1.0-4.8); Lymphocytes % (A) 22 %; MCH 31.4 pg (25.0-35.0); MCV 97.9 fL (80.0-100.0); Mean Platelet Volume 6.4; Monocytes # (A) 0.5 k/uL (0-1.0); Monocytes % (A) 4 %; Neutrophils % (A) 70 %; Platelet Count 478 k/uL (150-450); RBC 4.77 m/uL (3.80-5.40); RDW 13.6 % (11.5-15.5)
[2020-05-03 15:41] LABS: African American GFR (CKD) 143.8 (60.0-200.0); Albumin 4.3 g/dL (3.80-4.90); Albumin/Globulin Ratio 1.79 (1.60-3.17); Anion Gap 6.3 mmol/L (4.00-12.00); Calcium 9.5 mg/dL (8.7-10.3); Carbon Dioxide 25.7 mmol/L (21.6-31.8); Globulin 2.4 g/dL (1.6-3.3); Potassium 4.4 mmol/L (3.5-5.5); Total Bilirubin 0.2 mg/dL (0.2-1.2); Total Protein 6.7 g/dL (6.2-8.2)
== END | disposition home or self-care (01) ==
LOC: LABWHC1 09:04
PROVIDERS: ATTEND Physician Assistant
DX: R10.11 Right upper quadrant pain (principal); R19.7 Diarrhea, unspecified
CPT/HCPCS: 36415; 80053; 82150; 83690; 85025

== ENCOUNTER → 2020-06-09 | Outpatient (CLI) | payer BC ==
[2020-06-10 03:13] LABS: DHEA Sulfate 96.6 ug/dL (26.0-430.0)
[2020-06-10 03:14] LABS: Follicle Stimulating Hormone 5.7 mIU/mL; Luteinizing Hormone 4.5 mIU/mL; Prolactin 5.3 ng/mL (2.8-29.2); T4, Free (Free Thyroxine) 1.2 ng/dL (0.80-1.80)
[2020-06-10 03:40] LABS: Progesterone 0.3 ng/mL
== END | disposition home or self-care (01) ==
LOC: LABWHC1 14:14
PROVIDERS: ATTEND Obstetrics & Gynecology
DX: N97.0 Female infertility associated with anovulation (principal)
CPT/HCPCS: 36415; 82627; 83001; 83002; 84144; 84146; 84403; 84439; 84443; 84479

== ENCOUNTER → 2020-06-28 | Outpatient (CLI) | payer OTHER | END | disposition home or self-care (01) | LOC: LABWHC1 09:34 | PROVIDERS: ATTEND Obstetrics & Gynecology | DX: N97.0 Female infertility associated with anovulation (principal) | CPT/HCPCS: 36415; 84144 ==

== ENCOUNTER → 2020-06-30 | Outpatient (CLI) | payer OTHER ==
--- NOTE | 2020-06-30 12:18 | US ---
EXAMINATION TYPE: US transvaginal DATE OF EXAM: 06/30/2020 COMPARISON: NONE CLINICAL HISTORY: 30-year-old female N83.20 Previous ovarian cyst. TECHNIQUE: Transvaginal (TV). Date of LMP: 06-30-20 FINDINGS: EXAM MEASUREMENTS: Uterus: 8.2 x 3.7 x 3.5cm Endometrial Stripe: 1.2 cm Right Ovary: 3.3 x 2.6 x 2.3 cm Left Ovary: 2.4 x 1.8 x 2.0 cm 1. Uterus: Anteverted and otherwise wnl 2. Endometrium: wnl 3. Right Ovary: somewhat limited views due to overlying bowel gas. The visualized portions appear wn l 4. Left Ovary: Normal follicular change is noted. Elementary Art Teacher notes: wnl. However, posterior to the l eft ovary is a cystic structure measuring 2.4 x 1.7 x 1.8cm, unable to connect this with any ovarian tissue. 5. Bilateral Adnexa: Otherwise, wnl 6. Posterior cul-de-sac: wnl IMPRESSION: 1. Endometrial stripe thickness at 1.2 cm should correspond to the secretory phase of the menstrual c ycle. 2. A 2.4 cm cystic structure in the left adnexa posterior to the left ovary. 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 Follow-up in 3 months to reassess.
== END | disposition home or self-care (01) ==
LOC: RADUSWWP 10:12
PROVIDERS: ATTEND Obstetrics & Gynecology
DX: N83.202 Unspecified ovarian cyst, left side (principal)
CPT/HCPCS: 76830

== ENCOUNTER → 2020-07-27 | Outpatient (CLI) | payer OTHER | END | disposition home or self-care (01) | LOC: LABWHC1 12:11 | PROVIDERS: ATTEND Dermatology | DX: Z79.899 Other long term (current) drug therapy (principal) | CPT/HCPCS: 36415; 86480 ==

== ENCOUNTER → 2020-10-19 | Outpatient (CLI) | payer OTHER ==
[2020-10-19 21:40] LABS: Basophils # (A) 0.08 X 10*3/uL (0.00-0.10); Basophils % (A) 0.5 %; Eosinophils # (A) 0.38 X 10*3/uL (0.04-0.35); Eosinophils % (A) 2.5 %; HCT 42.2 % (37.2-46.3); HGB 13.8 g/dL (12.0-15.0); Lymphocytes # (A) 4.27 X 10*3/uL (0.90-5.00); Lymphocytes % (A) 27.7 %; MCH 32.4 pg (27.0-32.0); MCHC 32.7 g/dL (32.0-37.0); MCV 99.1 fL (80.0-97.0); Mean Platelet Volume 9.2 fL (9.5-12.2); Monocytes % (A) 5.8 %; Neutrophils # (A) 9.73 X 10*3/uL (1.80-7.70); Platelet Count 491 X 10*3/uL (140-440); RBC 4.26 X 10*6/uL (4.10-5.20); RDW 14.5 % (11.5-14.5); WBC 15.43 X 10*3/uL (4.50-10.00)
[2020-10-19 22:11] LABS: ALT 16 U/L (8-44); AST 14 U/L (13-35); African American GFR (CKD) 136.7 (60.0-200.0); Albumin/Globulin Ratio 1.67 (1.60-3.17); Alkaline Phosphatase 97 U/L (41-126); Bilirubin, Conjugated <0.20 mg/dL (0.20-0.40); Globulin 2.7 g/dL (1.6-3.3); Non-African American GFR(CKD) 117.9 (60.0-200.0); Total Bilirubin 0.3 mg/dL (0.3-1.2); Total Protein 7.2 g/dL (6.2-8.2)
== END | disposition home or self-care (01) ==
LOC: LABWHC1 14:50
PROVIDERS: ATTEND Family Medicine
DX: D72.829 Elevated white blood cell count, unspecified (principal)
CPT/HCPCS: 36415; 80076; 82565; 85025

== ENCOUNTER → 2020-10-21 | Outpatient (CLI) | payer OTHER ==
[2020-10-21 23:07] LABS: Basophils # (A) 0.07 X 10*3/uL (0.00-0.10); Basophils % (A) 0.5 %; Eosinophils # (A) 0.34 X 10*3/uL (0.04-0.35); Eosinophils % (A) 2.6 %; HCT 42.1 % (37.2-46.3); HGB 13.3 g/dL (12.0-15.0); Lymphocytes # (A) 3.63 X 10*3/uL (0.90-5.00); Lymphocytes % (A) 28.2 %; MCH 31.2 pg (27.0-32.0); MCHC 31.6 g/dL (32.0-37.0); MCV 98.8 fL (80.0-97.0); Mean Platelet Volume 8.9 fL (9.5-12.2); Monocytes # (A) 0.83 X 10*3/uL (0.20-1.00); Monocytes % (A) 6.5 %; Neutrophils # (A) 7.94 X 10*3/uL (1.80-7.70); Neutrophils % (A) 61.8 %; Platelet Count 473 X 10*3/uL (140-440); RBC 4.26 X 10*6/uL (4.10-5.20); RDW 14.5 % (11.5-14.5); WBC 12.86 X 10*3/uL (4.50-10.00)
== END | disposition home or self-care (01) ==
LOC: LABWHC1 13:10
PROVIDERS: ATTEND Physician Assistant
DX: D72.829 Elevated white blood cell count, unspecified (principal)
CPT/HCPCS: 36415; 85025

== ENCOUNTER → 2020-12-28 | Outpatient (CLI) | payer OTHER ==
[2020-12-28 23:03] LABS: Basophils # (A) 0.06 X 10*3/uL (0.00-0.10); Basophils % (A) 0.4 %; Eosinophils % (A) 2.6 %; HCT 42.9 % (37.2-46.3); HGB 13.8 g/dL (12.0-15.0); Lymphocytes # (A) 3.54 X 10*3/uL (0.90-5.00); Lymphocytes % (A) 23.4 %; MCH 31.7 pg (27.0-32.0); MCHC 32.2 g/dL (32.0-37.0); MCV 98.6 fL (80.0-97.0); Mean Platelet Volume 9.3 fL (9.5-12.2); Monocytes # (A) 0.96 X 10*3/uL (0.20-1.00); Monocytes % (A) 6.4 %; Neutrophils # (A) 10.02 X 10*3/uL (1.80-7.70); Neutrophils % (A) 66.4 %; Platelet Count 486 X 10*3/uL (140-440); RBC 4.35 X 10*6/uL (4.10-5.20); RDW 14.2 % (11.5-14.5)
[2020-12-29 09:45] LABS: ALT 14 U/L (8-44); AST 17 U/L (13-35); African American GFR (CKD) 143.8 (60.0-200.0); Albumin/Globulin Ratio 1.52 (1.60-3.17); Alkaline Phosphatase 103 U/L (41-126); Bilirubin, Conjugated <0.20 mg/dL (0.20-0.40); Globulin 2.7 g/dL (1.6-3.3); Total Bilirubin 0.2 mg/dL (0.2-1.2); Total Protein 6.8 g/dL (6.2-8.2)
== END | disposition home or self-care (01) ==
LOC: LABWHC1 15:09
PROVIDERS: ATTEND Student in an Organized Health Care Education/Training Program
DX: Z51.81 Encounter for therapeutic drug level monitoring (principal); L40.50 Arthropathic psoriasis, unspecified
CPT/HCPCS: 36415; 80076; 82565; 85025

== ENCOUNTER → 2021-01-18 | Outpatient (CLI) | payer OTHER ==
[2021-01-18 23:21] LABS: Basophils # (A) 0.08 X 10*3/uL (0.00-0.10); Basophils % (A) 0.5 %; Eosinophils # (A) 0.38 X 10*3/uL (0.04-0.35); Eosinophils % (A) 2.6 %; HCT 45.7 % (37.2-46.3); HGB 14.4 g/dL (12.0-15.0); Lymphocytes # (A) 4.05 X 10*3/uL (0.90-5.00); Lymphocytes % (A) 27.6 %; MCH 30.8 pg (27.0-32.0); MCHC 31.5 g/dL (32.0-37.0); MCV 97.9 fL (80.0-97.0); Mean Platelet Volume 9.3 fL (9.5-12.2); Monocytes # (A) 0.96 X 10*3/uL (0.20-1.00); Monocytes % (A) 6.5 %; Neutrophils # (A) 9.13 X 10*3/uL (1.80-7.70); Neutrophils % (A) 62.1 %; Platelet Count 526 X 10*3/uL (140-440); RBC 4.67 X 10*6/uL (4.10-5.20); RDW 14.6 % (11.5-14.5)
[2021-01-19 16:34] LABS: ALT 13 U/L (8-44); AST 19 U/L (13-35); African American GFR (CKD) 136.7 (60.0-200.0); Albumin/Globulin Ratio 1.61 (1.60-3.17); Alkaline Phosphatase 104 U/L (41-126); Bilirubin, Conjugated <0.20 mg/dL (0.20-0.40); Globulin 2.8 g/dL (1.6-3.3); Non-African American GFR(CKD) 117.9 (60.0-200.0); Total Bilirubin 0.4 mg/dL (0.2-1.2); Total Protein 7.3 g/dL (6.2-8.2)
== END | disposition home or self-care (01) ==
LOC: LABWHC1 14:19
PROVIDERS: ATTEND Student in an Organized Health Care Education/Training Program
DX: Z51.81 Encounter for therapeutic drug level monitoring (principal); L40.50 Arthropathic psoriasis, unspecified
CPT/HCPCS: 36415; 80076; 82565; 85025

== ENCOUNTER → 2021-06-20 | Outpatient (CLI) | payer OTHER ==
[2021-06-20 22:44] LABS: Basophils # (A) 0.05 X 10*3/uL (0.00-0.10); Basophils % (A) 0.4 %; Eosinophils # (A) 0.44 X 10*3/uL (0.04-0.35); Eosinophils % (A) 3.4 %; HCT 44.9 % (37.2-46.3); HGB 14.1 g/dL (12.0-15.0); Lymphocytes # (A) 3.72 X 10*3/uL (0.90-5.00); Lymphocytes % (A) 29.1 %; MCH 30.9 pg (27.0-32.0); MCHC 31.4 g/dL (32.0-37.0); MCV 98.5 fL (80.0-97.0); Mean Platelet Volume 9.6 fL (9.5-12.2); Monocytes # (A) 0.82 X 10*3/uL (0.20-1.00); Monocytes % (A) 6.4 %; Neutrophils # (A) 7.71 X 10*3/uL (1.80-7.70); Neutrophils % (A) 60.2 %; Platelet Count 382 X 10*3/uL (140-440); RBC 4.56 X 10*6/uL (4.10-5.20)
[2021-06-20 22:56] LABS: African American GFR (CKD) 137.4 (60.0-200.0); Albumin/Globulin Ratio 1.36 (1.60-3.17); Anion Gap 10.6 mmol/L (10.00-18.00); BUN/Creat Ratio 14.73 Ratio (12.00-20.00); Blood Urea Nitrogen 9.9 mg/dL (9.0-27.0); Calcium 9.2 mg/dL (8.7-10.3); Carbon Dioxide 22.9 mmol/L (20.0-27.5); Globulin 2.9 g/dL (1.6-3.3); Non-African American GFR(CKD) 118.6 (60.0-200.0); Potassium 4.4 mmol/L (3.5-5.5); Total Bilirubin 0.3 mg/dL (0.30-1.20); Total Protein 6.9 g/dL (6.2-8.2)
== END | disposition home or self-care (01) ==
LOC: LABWHC1 14:28
PROVIDERS: ATTEND Physician Assistant
DX: R10.11 Right upper quadrant pain (principal)
CPT/HCPCS: 36415; 80053; 83690; 85025

== ENCOUNTER → 2021-06-23 | Outpatient (CLI) | payer OTHER ==
--- NOTE | 2021-06-24 07:39 | US ---
EXAMINATION TYPE: US abdomen complete DATE OF EXAM: 06/23/2021 COMPARISON: US ABD LTD 2019 CLINICAL HISTORY: R10.11 RUQ PAIN. RUQ pain EXAM MEASUREMENTS: Liver Length: 16.3 cm Gallbladder Wall: 0.24 cm CBD: 0.23 cm Spleen: 10.7 x 4.5 cm Right Kidney: 11.4 x 4.6 x 4.9 cm Left Kidney: 11.6 x 5.3 x 5.1 cm Pancreas: Tail obscured by overlying bowel gas Liver: Appears wnl Gallbladder: Appears wnl Evidence for sonographic Juárez's sign: No CBD: Portions visualized appear wnl Spleen: wnl Right Kidney: No hydronephrosis or masses seen Left Kidney: No hydronephrosis or masses seen Upper IVC: wnl Abd Aorta: wnl The liver is homogenous. The intrahepatic portion of the IVC and proximal abdominal aorta are within normal limits. There is no evidence of cholelithiasis. Common bile duct is unremarkable. The visu alized portions of the pancreas are homogenous. The spleen is unremarkable. Kidneys are symmetric a nd free of hydronephrosis. No renal lesions are seen. IMPRESSION: Examination is within normal limits.
== END | disposition home or self-care (01) ==
LOC: RADUSWWP 16:26
PROVIDERS: ATTEND Family Medicine
DX: R10.11 Right upper quadrant pain (principal)
CPT/HCPCS: 76700

== ENCOUNTER → 2021-07-15 | Outpatient (CLI) | payer OTHER ==
--- NOTE | 2021-07-15 09:15 | NM ---
EXAMINATION TYPE: NM hepatobiliary w EF DATE OF EXAM: 07/15/2021 COMPARISON: NONE HISTORY: Right upper quadrant pain TECHNIQUE: After the intravenous administration of 4.2 mCi Tc 99m Mebrofenin hepatobiliary scintigrap hy is performed. Immediate images post injection. FINDINGS: There is satisfactory initial accumulation of tracer by the liver. The gallbladder is visualized wit hin 5 minutes. The small bowel activity is noted within 38 minutes. At one hour 8 ounces of oral en sure plus is given to mimic CCK and gallbladder ejection fraction is calculated at 88%. IMPRESSION: Correlate for hypercontractile state.
== END | disposition home or self-care (01) ==
LOC: RADNMMAIN 06:45
PROVIDERS: ATTEND Family Medicine
DX: R10.11 Right upper quadrant pain (principal)
CPT/HCPCS: 78226; A9537

== ENCOUNTER 2021-08-12 12:08 | Day surgery (SDC) | payer OTHER ==
[2021-08-10 10:52] VITALS: BMI 36.1
[~2021-08-12 12:08] MED LIST: LACTATED RINGERS 1,000 ML IV SCH; LIDOCAINE 1% (10MG/ML) FOR IV START INTRADERMA PRN
[2021-08-12 12:36] VITALS: TEMP 97.6
[2021-08-12] MEDS ORDERED: PROPOFOL 10 MG/ML 20 ML VIAL IV ONE (13:18)
[2021-08-12] MEDS ORDERED: LIDOCAINE 1% INJ 10MG/ML (20 ML MDV) ONE (13:18)
--- NOTE | 2021-08-12 13:27 | P.OP ---
Date of Procedure: 08/12/21 Preoperative Diagnosis: GERD Postoperative Diagnosis: Smallhiatal hernia Procedure(s) Performed: EGD with biopsy Anesthesia: CHLOÉ Surgeon: Juma Zapata Estimated Blood Loss (ml): 0 Condition: stable Disposition: same day Description of Procedure: Patient is brought operative suite remained in the left lateral decubitus position underwent sedation per department of anesthesia timeout performed correct patient correct procedure correct site was verified scope was passed through the oropharynx down the esophagus into the first and second portion of the duodenum with ease and slowly withdrawn make sure to visualize all sanders of the duodenum and no abnormalities are noted it was withdrawn into the stomach and antral biopsies taken to rule out H. pylori there is no significant inflammation within the stomach the scope was retroflexed and there was a very small hiatal hernia noted the scope was withdrawn to the GE junction where biopsies taken to rule out Ambriz's esophagitis scope was then slowly withdrawn being sure to visualize the esophagus on the way out and there was no other gross abnormalities noted. Patient tolerated procedure well no apparent comp locations
[2021-08-12 13:33] VITALS: RESP 16
[2021-08-12 13:47] VITALS: BP 112/65; PULSE 73
== END 2021-08-12 14:11 | disposition home or self-care (01) ==
LOC: ORWHC2ENDO 12:08
PROVIDERS: ATTEND Student in an Organized Health Care Education/Training Program
DX: K29.50 Unspecified chronic gastritis without bleeding (principal); K21.00 Gastro-esophageal reflux disease with esophagitis, without bleeding; K44.9 Diaphragmatic hernia without obstruction or gangrene
CPT/HCPCS: 43239; 88305; 81025; J2001; J2704

== ENCOUNTER → 2022-08-18 | Outpatient (CLI) | payer OTHER ==
--- NOTE | 2022-08-18 14:46 | XR ---
EXAMINATION TYPE: XR knee complete bilateral DATE OF EXAM: 08/18/2022 COMPARISON: Bilateral knee x-rays March 25, 2015 HISTORY: Psoriatic arthritis and bilateral knee pain. TECHNIQUE: 3 views of the bilateral knees. FINDINGS: There is no acute fracture or dislocation of either knee. Overlying Soft tissue is unremarkable bilaterally. Right knee shows mild narrowing patellofemoral compartment and mild narrowing lateral tibial femoral compartment on current study. No significant spurring. Left knee shows moderate narrowing and mild to moderate spurring patellofemoral compartment. There is mild to moderate narrowing and spurring medial tibial femoral compartment. IMPRESSION: As above. Degenerative changes greater in the left knee are more prominent from the 2014 study.
== END | disposition home or self-care (01) ==
LOC: RADXRMAIN 14:10
PROVIDERS: ATTEND Internal Medicine
DX: M17.0 Bilateral primary osteoarthritis of knee (principal); L40.50 Arthropathic psoriasis, unspecified

== ENCOUNTER → 2022-12-14 | Outpatient (CLI) | payer OTHER, MEDICARE ==
[2022-12-15 03:14] LABS: Basophils # (A) 0.06 X 10*3/uL (0.00-0.10); Basophils % (A) 0.5 %; Eosinophils # (A) 0.39 X 10*3/uL (0.04-0.35); Eosinophils % (A) 3.3 %; HCT 47.6 % (37.2-46.3); HGB 15.3 d/dL (12.0-15.0); Lymphocytes # (A) 3.05 X 10*3/uL (0.90-5.00); Lymphocytes % (A) 25.7 %; MCH 30.1 pg (27.0-32.0); MCHC 32.1 d/dL (32.0-37.0); MCV 93.7 FL (80.0-97.0); Mean Platelet Volume 9.5 FL (9.5-12.2); Monocytes # (A) 0.75 X 10*3/uL (0.20-1.00); Monocytes % (A) 6.3 %; NRBC Per 100 WBC 0 X 10*3/uL (0.00-0.01); Neutrophils # (A) 7.58 X 10*3/uL (1.80-7.70); Neutrophils % (A) 63.9 %; Platelet Count 449 X 10*3/uL (140-440); RBC 5.08 X 10*6/uL (4.10-5.20); RDW 13.9 % (11.5-14.5); WBC 11.86 X 10*3/uL (4.50-10.00)
[2022-12-15 03:23] LABS: ALT 14 U/L (8-44); AST 21 U/L (13-35); Albumin 4.5 d/dL (3.8-4.9); Albumin/Globulin Ratio 1.41 Ratio (1.60-3.17); Alkaline Phosphatase 103 U/L (41-126); Bilirubin, Conjugated <0.20 mg/dL (0.20-0.40); Bilirubin,Unconjugated >0 mg/dL (0.20-1.00); Globulin 3.2 d/dL (1.6-3.3); Total Bilirubin 0.2 mg/dL (0.3-1.2); Total Protein 7.7 d/dL (6.2-8.2)
== END | disposition home or self-care (01) ==
LOC: LABWHC1 14:34
PROVIDERS: ATTEND Student in an Organized Health Care Education/Training Program
DX: Z51.81 Encounter for therapeutic drug level monitoring (principal); L40.50 Arthropathic psoriasis, unspecified
CPT/HCPCS: 36415; 80076; 82565; 85025

== ENCOUNTER → 2023-04-04 | Outpatient (CLI) | payer MEDICARE, OTHER ==
[2023-04-04 10:04] LABS: Appearance,Urine Cloudy (Clear); Bilirubin,Urine Negative (Negative); Blood,Urine Negative (Negative); Color,Urine Yellow; Glucose,Urine (UA) Negative (Negative); Ketones,Urine Negative (Negative); Leukocyte Esterase,Urine Moderate (Negative); Mucus,Urine Many /hpf; Nitrite,Urine Negative (Negative); PH, Urine 5.5 (5.0-8.0); Protein,Urine Negative (Negative); RBC,Urine 1 /hpf (0-5); Squamous Epithelial Cell,Urine 12 /hpf (0-4); Urobilinogen,Urine <2.0 mg/dL (<2.0); WBC,Urine 19 /hpf (0-5)
[2023-04-04 16:16] LABS: Basophils # (A) 0.03 X 10*3/uL (0.00-0.10); Basophils % (A) 0.3 %; Eosinophils # (A) 0.36 X 10*3/uL (0.04-0.35); Eosinophils % (A) 3.6 %; HCT 44.8 % (37.2-46.3); HGB 14.4 g/dL (12.0-15.0); Lymphocytes # (A) 2.68 X 10*3/uL (0.90-5.00); Lymphocytes % (A) 26.6 %; MCH 29.6 pg (27.0-32.0); MCHC 32.1 g/dL (32.0-37.0); MCV 92.2 FL (80.0-97.0); Mean Platelet Volume 9.2 FL (9.5-12.2); Monocytes # (A) 0.61 X 10*3/uL (0.20-1.00); Monocytes % (A) 6.1 %; NRBC Per 100 WBC 0 X 10*3/uL (0.00-0.01); Neutrophils # (A) 6.36 X 10*3/uL (1.80-7.70); Neutrophils % (A) 63.1 %; Platelet Count 411 X 10*3/uL (140-440); RBC 4.86 X 10*6/uL (4.10-5.20); RDW 16.8 % (11.5-14.5); WBC 10.07 X 10*3/uL (4.50-10.00)
[2023-04-04 16:45] LABS: ALT 17 U/L (8-44); AST 24 U/L (13-35); Albumin 4.2 g/dL (3.8-4.9); Albumin/Globulin Ratio 1.45 Ratio (1.60-3.17); Alkaline Phosphatase 96 U/L (41-126); Bilirubin, Conjugated <0.20 mg/dL (0.20-0.40); Bilirubin,Unconjugated >0.10 mg/dL (0.20-1.00); Chol/HDL Ratio 5.88 Ratio; Globulin 2.9 g/dL (1.6-3.3); Total Bilirubin 0.3 mg/dL (0.3-1.2); Total Protein 7.1 g/dL (6.2-8.2)
== END | disposition home or self-care (01) ==
LOC: LABWHC1 08:50
PROVIDERS: ATTEND Family Medicine
DX: Z00.01 Encounter for general adult medical examination with abnormal findings (principal); Z51.81 Encounter for therapeutic drug level monitoring; E66.9 Obesity, unspecified; E55.9 Vitamin D deficiency, unspecified; L40.50 Arthropathic psoriasis, unspecified; D84.9 Immunodeficiency, unspecified; Z79.899 Other long term (current) drug therapy
CPT/HCPCS: 36415; 80061; 80076; 81001; 82306; 82565; 83036; 84443; 85025; 87086

== ENCOUNTER → 2023-07-04 | Outpatient (CLI) | payer MEDICARE, OTHER ==
--- NOTE | 2023-07-04 13:43 | US ---
EXAMINATION TYPE: Transabdominal DATE OF EXAM: 07/04/2023 1:30 PM COMPARISON: NONE CLINICAL INDICATION: Female, 33 years old with history of N93.9 ABNORMAL UTERINE AND VAGINAL BLEEDING , UNSPE; early , , bleeding that is increasing and clots this am EXAM PERFORMED: OBTA/OBTV EXAM MEASUREMENTS: GESTATIONAL AGE / DATING Physician Established: Not yet established Dates by LMP: (5 weeks/2 days) EDC: 03/03/2024 Dates by First Scan: No previous this is first scan Dates by Current Scan for: No IUP seen at this time MATERNAL ANATOMY Uterus: 9.0 x 4.3 x 3.2cm Right Ovary: 3.3 x 2.8 x 2.8cm Left Ovary: 3.7 x 2.5 x 2.1cm Post CDS / Adnexa: wnl Presence of free fluid: no Presence of corpus luteal cyst: not seen Presence of subchorionic bleed: no GESTATION / SURVEY CRL: not seen MSD: not seen Yolk Sac (normal less than 6mm): not seen IUP: No IUP seen at this time Date of LMP: 05/28/2023 Beta HcG (if available): 31 last week, drawn today but no results yet IMPRESSION: 1. No intrauterine seen at this time. Given the patient's history of a positive t est a nonvisualized intrauterine , failed or nonvisualized ectopic would be in the differential diagnosis. Follow-up with serial beta-hCG and ultrasound is recommended as cl inically indicated. Correlation should be made with serum beta-hCG which is not available at this gaby e. 2. No evidence of ovarian torsion or adnexal mass.
== END | disposition home or self-care (01) ==
LOC: RADUSWWP 12:30
PROVIDERS: ATTEND Family Medicine
DX: N93.9 Abnormal uterine and vaginal bleeding, unspecified (principal); O20.9 Hemorrhage in early pregnancy, unspecified
CPT/HCPCS: 76801; 76817

== ENCOUNTER → 2023-07-11 | Outpatient (CLI) | payer MEDICARE, OTHER ==
--- NOTE | 2023-07-11 10:35 | US ---
EXAMINATION TYPE: US pelvis complete transvag DATE OF EXAM: 07/11/2023 COMPARISON: NONE CLINICAL INDICATION: Female, 33 years old with history of O03.9 COMPLETE OR UNSP SPONTANEOUS WITHOU; miscarraige last week TECHNIQUE: Transabdominal sonographic images of the pelvis were acquired. Transvaginal sonographic images were medically necessary to better assess the following anatomy: Ovaries Date of LMP: unsure, miscarriage last week EXAM MEASUREMENTS: Uterus: 7.2x6.0x4.8 cm Endometrial Stripe: 1.2 cm Right Ovary: 3.6x2.4x2.6 cm Left Ovary: 3.2x2.0x2.4 cm [employer] notes: Exam limited by bowel gas and body habitus 1. Uterus: Anteverted but retroflexed, trace fluid in endocervical canal 2. Endometrium: wnl 3. Right Ovary: 1.5x1.4x1.6 cystic area 4. Left Ovary: wnl 5. Bilateral Adnexa: Obscured by overlying bowel gas 6. Posterior cul-de-sac: wnl IMPRESSION: 1. No visualized intrauterine . Trace fluid within the endocervical canal. Correlate with se rial beta hCGs. Findings may be in keeping with reported history of spontaneous . Any additio nal ultrasound follow-up as clinically indicated. 2. A 1.6 cm dominant follicle or functional cyst of the right ovary.
== END | disposition home or self-care (01) ==
LOC: RADUSWWP 09:47
PROVIDERS: ATTEND Family Medicine
DX: O03.9 Complete or unspecified spontaneous abortion without complication (principal); N83.01 Follicular cyst of right ovary
CPT/HCPCS: 36415; 76830; 76856; 84702

== ENCOUNTER → 2024-04-23 | Outpatient (CLI) | payer MEDICARE, OTHER | END | disposition home or self-care (01) | LOC: LABWHC1 11:47 | PROVIDERS: ATTEND Dermatology | DX: Z51.81 Encounter for therapeutic drug level monitoring (principal); Z79.899 Other long term (current) drug therapy | CPT/HCPCS: 36415; 86480 ==

== ENCOUNTER → 2024-12-03 | Outpatient (CLI) | payer MEDICARE, OTHER | END | disposition home or self-care (01) | LOC: LABWHC1 12:57 | PROVIDERS: ATTEND Family Medicine | DX: Z32.01 Encounter for pregnancy test, result positive (principal) | CPT/HCPCS: 36415; 84702 ==

== ENCOUNTER → 2024-12-09 | Outpatient (CLI) | payer MEDICARE, OTHER | END | disposition home or self-care (01) | LOC: LABWHC1 11:14 | PROVIDERS: ATTEND Family Medicine | DX: Z34.90 Encounter for supervision of normal pregnancy, unspecified, unspecified trimester (principal); Z3A.01 Less than 8 weeks gestation of pregnancy | CPT/HCPCS: 36415; 84702 ==

== ENCOUNTER 2024-12-15 11:03 | Emergency (ER) | payer MEDICARE, OTHER ==
[2024-12-15 11:25] VITALS: RESP 20; TEMP 98.1
--- NOTE | 2024-12-15 11:57 | ED ---
General Adult HPI - General Chief complaint: Vaginal Bleeding Stated complaint: Vaginal bleeding(7 weeks preg) Time Seen by Provider: 12/15/24 11:18 Source: patient, RN notes reviewed Mode of arrival: ambulatory Limitations: no limitations - History of Present Illness Initial comments: This is a 6-week , A1 (miscarriage), 34-year-old female with history of ALL and psoriatic arthritis presenting for vaginal bleeding over the weekend.. Patient states bleeding involve mostly spotting that has since resolved. Endorses lower abdominal cramping for the past several weeks and constipation. Patient states she had ultrasound performed at [facility], confirming intrauterine . Denies fever, chills, N/V, dysu padmini, vaginal discharge. Onset/Timin -: days(s) Location: abdomen Radiation: non-radiation Consistency: intermittent Associated Symptoms: denies other symptoms Treatments Prior to Arrival: none - Related Data Home Medications Medication Instructions Recorded Confirmed Venlafaxine HCl [Effexor XR] 75 mg PO DAILY 06/15/17 08/12/21 Diclofenac Sodium 50 mg PO DAILY 08/10/21 08/12/21 Folic Acid 1 mg PO DAILY 08/10/21 08/12/21 Ixekizumab [Taltz Autoinjector] 80 mg SQ Q30D 08/10/21 08/12/21 Pantoprazole Sodium 20 mg PO DAILY 08/10/21 08/12/21 metHOTREXate sodium [Methotrexate] 25 mg PO CARVALHO 08/10/21 08/12/21 Previous Rx's Medication Instructions Recorded Meclizine [Antivert] 25 mg PO TID PRN #12 tab 04/20/18 Allergies Allergy/AdvReac Type Severity Reaction Status Date / Time latex Allergy Rash/Hives Verified 08/12/21 12:33 Penicillins Allergy Rash/Hives Verified 08/12/21 12:33 salmon oil Allergy Nausea & Verified 12/15/24 11:25 Vomiting Review of Systems ROS Statement: Those systems with pertinent positive or pertinent negative responses have been documented in the HPI. ROS Other: All systems not noted in ROS Statement are negative. Past Medical History Past Medical History: Cancer, GERD/Reflux, Skin Disorder Additional Past Medical History / Comment(s): leukemia, ALL,-HAD CHEMO. PSORIATIC ARTHRITIS. ABD PAIN History of Any Multi-Drug Resistant Organisms: None Reported Past Surgical History: Tonsillectomy Additional Past Surgical History / Comment(s): EGD Past Anesthesia/Blood Transfusion Reactions: Motion Sickness Past Psychological History: Anxiety, Depression Smoking Status: Current every day smoker Past Alcohol Use History: None Reported Past Drug Use History: None Reported - Past Family History Mother Family Medical History: No Reported History General Exam Limitations: no limitations General appearance: alert, in no apparent distress Head exam: Present: atraumatic, normocephalic, normal inspection Eye exam: Present: normal appearance, PERRL, EOMI. Absent: scleral icterus, conjunctival injection, periorbital swelling ENT exam: Present: normal exam, mucous membranes moist Neck exam: Present: normal inspection. Absent: tenderness, meningismus, lymphadenopathy Respiratory exam: Present: normal lung sounds bilaterally. Absent: respiratory distress, wheezes, rales, rhonchi, stridor Cardiovascular Exam: Present: regular rate, normal rhythm, normal heart sounds. Absent: systolic murmur, diastolic murmur, rubs, gallop, clicks GI/Abdominal exam: Present: soft, tenderness (Positive right adnexal and suprapubic TTP without guarding), diminished bowel sounds, hypoactive bowel sounds. Absent: distended, guarding, rebound, rigid Extremities exam: Present: normal inspection, full ROM, normal capillary refill. Absent: tenderness, pedal edema, joint swelling, calf tenderness Back exam: Present: normal inspection Neurological exam: Present: alert, oriented X3, CN II-XII intact Psychiatric exam: Present: normal affect, normal mood Skin exam: Present: warm, dry, intact, normal color. Absent: rash Course Vital Signs 12/15/24 12/15/24 12/15/24 11:22 14:02 15:10 Temperature 98.1 F 98.1 F Pulse Rate 83 74 76 Respiratory 20 20 20 Rate Blood Pressure 105/72 120/65 118/68 O2 Sat by Pulse 99 100 100 Oximetry Medical Decision Making - Medical Decision Making Was pt. sent in by a medical professional or institution (, PA, AUTOMATIC I THREADING MACHINE FEEDER, urgent care, hospital, or shelter...) When possible be specific @ -No Did you speak to anyone other than the patient for history (EMS, parent, family, police, friend...)? What history was obtained from this source @ -No Did you review nursing and triage notes (agree or disagree)? Why? @ -I reviewed and agree with nursing and triage notes Were old charts reviewed (outside hosp., previous admission, EMS record, old EKG, old radiological studies, urgent care reports/EKG's, shelter records)? Report findings @ -No old charts were reviewed Differential Diagnosis (chest pain, altered mental status, abdominal pain women, abdominal pain men, vaginal bleeding, weakness, fever, dyspnea, syncope, headache, dizziness, GI bleed, back pain, seizure, CVA, palpatations, mental health, musculoskeletal)? @ -Differential Vaginal Bleeding: Spontaneous , threatened , molar , ectopic , bloody show, incompetent cervix, abruptioplacenta, placenta previa, uterine rupture, dysfunctional uterine bleeding, hemorrhage, uterine fibroids, this is not meant to be an all-inclusive list. EKG interpreted by me (3pts min.). @ -Not done X-rays interpreted by me (1pt min.). @ -None done CT interpreted by me (1pt min.). @ -None done U/S interpreted by me (1pt. min.). @ - Obstetric ultrasound confirms intrauterine at 6 weeks 2 days with small subchorionic hemorrhage within lower uterine segment, left uterine fundal fibroid and right ovarian 2.2 cm hypoechoic lesion. What testing was considered but not performed or refused? (CT, X-rays, U/S, labs)? Why? @ -None What meds were considered but not given or refused? Why? @ -None Did you discuss the management of the patient with other professionals (professionals i.e. DrStephen, PA, AUTOMATIC I THREADING MACHINE FEEDER, lab, RT, psych nurse, high school social studies teacher, track announcer, teacher, district resource officer, case advocate)? Give summary @ -No Was smoking cessation discussed for >3mins.? @ -No Was critical care preformed (if so, how long)? @ -No Were there social determinants of health that impacted care today? How? (Homelessness, low income, unemployed, alcoholism, drug addiction, transportation, low edu. Level, literacy, decrease access to med. care, [facility], rehab)? @ -No Was there de-escalation of care discussed even if they declined (Discuss DNR or withdrawal of care, Hospice)? DNR status @ -No What co-morbidities impacted this encounter? (DM, HTN, Smoking, COPD, CAD, Cancer, CVA, ARF, Chemo, Hep., AIDS, mental health diagnosis, sleep apnea, morbid obesity)? @ -None Was patient admitted / discharged? Hospital course, mention meds given and route, prescriptions, significant lab abnormalities, going to OR and other pertinent info. @ -Lab work notable for WBC 14.94, ketonuria and microscopic hematuria. Quantitative hCG 83833. Hemoglobin 13.4 with normal kidney function and LFT. Obstetric ultrasound confirms intrauterine at 6 weeks 2 days with small subchorionic hemorrhage within lower uterine segment, left uterine fundal fibroid and right ovarian 2.2 cm hypoechoic lesion. Advised patient to avoid any physical exertion or heavy lifting with close WATER OPERATOR follow-up for ongoing monitoring. Return to ER if vaginal bleeding and/or abdominal pain worsens. Discussed patient with Dr. George. Undiagnosed new problem with uncertain prognosis? @ -No Drug Therapy requiring intensive monitoring for toxicity (Heparin, Nitro, Insulin, Cardizem)? @ -No Were any procedures done? @ -No Diagnosis/symptom? @ -Subchorionic hemorrhage Acute, or Chronic, or Acute on Chronic? @ -Acute Uncomplicated (without systemic symptoms) or Complicated (systemic symptoms)? @ -Uncomplicated Side effects of treatment? @ -No Exacerbation, Progression, or Severe Exacerbation? @ -No Poses a threat to life or bodily function? How? (Chest pain, USA, AR, pneumonia, PE, COPD, DKA, ARF, appy, cholecystitis, CVA, Diverticulitis, Homicidal, Suicidal, threat to staff... and all critical care pts) @ -No - Lab Data Result diagrams: 12/15/24 13:09 12/15/24 13:09 Lab Results 12/15/24 12/15/24 12/15/24 Range/Units 13:09 13:09 13:48 WBC 14.94 H (4.50-10.00) 10*3/uL RBC 4.62 (4.10-5.20) 10*6/uL Hgb 13.4 (12.0-15.0) g/dL Hct 40.6 (37.2-46.3) % MCV 87.9 (80.0-97.0) fL MCH 29.0 (27.0-32.0) pg MCHC 33.0 (32.0-37.0) g/dL Plt Count 443 H (140-440) 10*3/uL MPV 8.8 L (9.5-12.2) fL Immature Gran % (Auto) 0.7 % Neutrophils % 63.7 % Lymphocytes % 26.8 % Monocytes % 6.2 % Eosinophils % 2.3 % Basophils % 0.3 % Immature Gran # 0.10 H (0.00-0.04) 10*3/uL Neutrophils # 9.52 H (1.80-7.70) 10*3/uL Lymphocytes # 4.01 (0.90-5.00) 10*3/uL Monocytes # 0.92 (0.20-1.00) 10*3/uL Eosinophils # 0.34 (0.04-0.35) 10*3/uL Basophils # 0.05 (0.00-0.10) 10*3/uL Manual Slide Review Performed Sodium 138 (137-145) mmol/L Potassium 4.5 (3.5-5.1) mmol/L Chloride 106 (98-107) mmol/L Carbon Dioxide 21 L (22-30) mmol/L Anion Gap 11 mmol/L BUN 10 (7-17) mg/dL Creatinine 0.49 L (0.52-1.04) mg/dL Est GFR (CKD-EPI)AfAm >90 (>60 ml/min/1.73 sqM) Est GFR (CKD-EPI)NonAf >90 (>60 ml/min/1.73 sqM) Glucose 81 (74-99) mg/dL Calcium 9.2 (8.4-10.2) mg/dL Total Bilirubin 0.6 (0.2-1.3) mg/dL AST 20 (14-36) U/L ALT 15 (4-34) U/L Alkaline Phosphatase 81 (38-126) U/L Total Protein 7.4 (6.3-8.2) g/dL Albumin 4.2 (3.5-5.0) g/dL HCG, Quant 44506.9 mIU/mL Urine Color Urine Appearance (Clear) Urine pH (5.0-8.0) Ur Specific [place] (1.001-1.035) Urine Protein (Negative) Urine Glucose (UA) (Negative) Urine Ketones (Negative) Urine Blood (Negative) Urine Nitrite (Negative) Urine Bilirubin (Negative) Urine Urobilinogen (<2.0) mg/dL Ur Leukocyte Esterase (Negative) Urine RBC (0-5) /hpf Urine WBC (0-5) /hpf Ur Squamous Epith Cells (0-4) /hpf Urine Mucus (None) /hpf Blood Type O Positive Blood Type Recheck No Previous Record Bld Type Recheck Status ABR ONLY 12/15/24 Range/Units 13:56 WBC (4.50-10.00) 10*3/uL RBC (4.10-5.20) 10*6/uL Hgb (12.0-15.0) g/dL Hct (37.2-46.3) % MCV (80.0-97.0) fL MCH (27.0-32.0) pg MCHC (32.0-37.0) g/dL Plt Count (140-440) 10*3/uL MPV (9.5-12.2) fL Immature Gran % (Auto) % Neutrophils % % Lymphocytes % % Monocytes % % Eosinophils % % Basophils % % Immature Gran # (0.00-0.04) 10*3/uL Neutrophils # (1.80-7.70) 10*3/uL Lymphocytes # (0.90-5.00) 10*3/uL Monocytes # (0.20-1.00) 10*3/uL Eosinophils # (0.04-0.35) 10*3/uL Basophils # (0.00-0.10) 10*3/uL Manual Slide Review Sodium (137-145) mmol/L Potassium (3.5-5.1) mmol/L Chloride (98-107) mmol/L Carbon Dioxide (22-30) mmol/L Anion Gap mmol/L BUN (7-17) mg/dL Creatinine (0.52-1.04) mg/dL Est GFR (CKD-EPI)AfAm (>60 ml/min/1.73 sqM) Est GFR (CKD-EPI)NonAf (>60 ml/min/1.73 sqM) Glucose (74-99) mg/dL Calcium (8.4-10.2) mg/dL Total Bilirubin (0.2-1.3) mg/dL AST (14-36) U/L ALT (4-34) U/L Alkaline Phosphatase (38-126) U/L Total Protein (6.3-8.2) g/dL Albumin (3.5-5.0) g/dL HCG, Quant mIU/mL Urine Color Colorless Urine Appearance Clear (Clear) Urine pH 6.0 (5.0-8.0) Ur Specific [place] 1.010 (1.001-1.035) Urine Protein Negative (Negative) Urine Glucose (UA) Negative (Negative) Urine Ketones 1+ H (Negative) Urine Blood Trace H (Negative) Urine Nitrite Negative (Negative) Urine Bilirubin Negative (Negative) Urine Urobilinogen <2.0 (<2.0) mg/dL Ur Leukocyte Esterase Negative (Negative) Urine RBC <1 (0-5) /hpf Urine WBC 1 (0-5) /hpf Ur Squamous Epith Cells <1 (0-4) /hpf Urine Mucus Rare H (None) /hpf Blood Type Blood Type Recheck Bld Type Recheck Status Disposition Clinical Impression: Subchorionic hematoma in first trimester Disposition: HOME SELF-CARE Condition: Fair Instructions (If sedation given, give patient instructions): Subchorionic Hemorrhage (ED) Additional Instructions: Avoid physical exertion and heavy lifting until OB follow-up, preferably within the next 24-48 hours. Return to ER if experiencing worsening vaginal bleeding o r abdominal pain/cramping. Is patient prescribed a controlled substance at d/c from ED?: No Referrals: Jarrett Pereira DO [Primary Care Provider] - 1-2 days Amarilis Arredondo MD [STAFF PHYSICIAN] - 1-2 days Time of Disposition: 15:19
--- NOTE | 2024-12-15 13:05 | US ---
EXAMINATION TYPE: Transabdominal DATE OF EXAM: 12/15/2024 12:47 PM COMPARISON: Pelvic ultrasound 07/11/2023 CLINICAL INDICATION: Female, 34 years old with history of Transient vaginal bleed, cramp; Heavy bleed ing on Sunday with overall pelvic cramping TECHNIQUE: Transvaginal (TV) and Transabdominal (TA) with grayscale and color Doppler imaging includi ng first trimester . FINDINGS: EXAM MEASUREMENTS: GESTATIONAL AGE / DATING Physician Established: (6 weeks/1 days) EDC: 08/09/2025 Dates by LMP: 11/02/2024 (6 weeks/2 days) EDC: 08/09/2025 Dates by First Scan: (6 weeks/1 days) EDC: 08/09/2025 Dates by Current Scan for: (6 weeks/2 days) EDC: 08/08/2025 MATERNAL ANATOMY Uterus: 9.9 x 4.9 x 6.1 cm Right Ovary: 4.2 x 3.7 x 3.0 Left Ovary: 8.7 x 2.0 x 2.8 cm Post CDS / Adnexa: WNL Presence of free fluid: No Presence of corpus luteal cyst: Right Ovary Presence of subchorionic bleed: ? BENJI GESTATION / SURVEY CRL: 0.56 (6 weeks/2 days) Gestational Sac morphology: ? WNL Gestational Sac MSD: NA ( weeks/ days) Yolk Sac (normal less than 6mm): 4 mm Cardiac Activity/Heart Rate: Flicker seen, ? Too early to measure bpm Rhythm: Unable to assess IUP: Viable IUP Nuchal Translucency 10-14wks (normal less than 3mm): NA Age Appropriate Anatomy Cord Insertion: NA Limbs: NA Calvarium: NA Date of LMP: 11/02/2024 Beta HcG (if available): 8772 12/09/2024 Fibroid seen left uterine fundus = 1.8 x 1.0 x 1.7 cm Dominant follicle noted left ovary. Corpus luteum right ovary Hypoechoic lesion within the right ovary = 2.2 x 1.7 x 2.1 cm. No internal color flow. Demonstrates l ow level homogeneous internal echoes. IMPRESSION: 1. Intrauterine with ultrasound age of 6 weeks 2 days and expected delivery date of 08/09/19 26 heart flicker is seen however too early to measure, likely due to early . Close cli nical follow-up with serial beta hCG and short-term follow-up ultrasound is recommended. 2. Small subchronic hemorrhage suggested within the lower uterine segment. Close clinical surveillanc e is recommended. 3. Left uterine fundal fibroid. 4. Right ovarian 2.2 cm hypoechoic lesion. Probably represents a hemorrhagic cyst versus endometrioma . Attention on follow-up exam. [facility], , 12/15/2024 1:03 PM
[2024-12-15 13:36] LABS: Basophils # (A) 0.05 10*3/uL (0.00-0.10); Basophils % (A) 0.3 %; Eosinophils # (A) 0.34 10*3/uL (0.04-0.35); Eosinophils % (A) 2.3 %; HCT 40.6 % (37.2-46.3); HGB 13.4 g/dL (12.0-15.0); Lymphocytes # (A) 4.01 10*3/uL (0.90-5.00); Lymphocytes % (A) 26.8 %; MCH 29.0 pg (27.0-32.0); MCHC 33.0 g/dL (32.0-37.0); MCV 87.9 fL (80.0-97.0); Monocytes # (A) 0.92 10*3/uL (0.20-1.00); Monocytes % (A) 6.2 %; Neutrophils # (A) 9.52 10*3/uL (1.80-7.70); Neutrophils % (A) 63.7 %; Platelet Count 443 10*3/uL (140-440); RBC 4.62 10*6/uL (4.10-5.20); RDW 14.6 % (11.5-14.5); WBC 14.94 10*3/uL (4.50-10.00)
[2024-12-15 13:43] LABS: ALT 15 U/L (4-34); AST 20 U/L (14-36); African American GFR (CKD) >90 (>60 ml/min/1.73 sqM); Albumin 4.2 g/dL (3.5-5.0); Alkaline Phosphatase 81 U/L (38-126); Anion Gap 11 mmol/L; Blood Urea Nitrogen 10 mg/dL (7-17); Calcium 9.2 mg/dL (8.4-10.2); Carbon Dioxide 21 mmol/L (22-30); Chloride 106 mmol/L (98-107); Glucose 81 mg/dL (74-99); Non-African American GFR(CKD) >90 (>60 ml/min/1.73 sqM); Potassium 4.5 mmol/L (3.5-5.1); Sodium 138 mmol/L (137-145); Total Protein 7.4 g/dL (6.3-8.2)
[2024-12-15 14:16] LABS: Bilirubin,Urine Negative (Negative); Blood,Urine Trace (Negative); Color,Urine Colorless; Glucose,Urine (UA) Negative (Negative); Ketones,Urine 1+ (Negative); Leukocyte Esterase,Urine Negative (Negative); Mucus,Urine Rare /hpf; Nitrite,Urine Negative (Negative); PH, Urine 6.0 (5.0-8.0); Protein,Urine Negative (Negative); RBC,Urine <1 /hpf (0-5); Specific Gravity,Urine 1.010 (1.001-1.035); Squamous Epithelial Cell,Urine <1 /hpf (0-4); Urobilinogen,Urine <2.0 mg/dL (<2.0); WBC,Urine 1 /hpf (0-5)
[2024-12-15 14:24] LABS: HCG,Quantitative Serum 44526.9 mIU/mL
[2024-12-15 15:12] VITALS: BP 118/68; PULSE 76
== END 2024-12-15 15:24 | disposition home or self-care (01) ==
LOC: EC 11:03
CPT/HCPCS: 36415; 76801; 76817; 80053; 81001; 84702; 85025; 86900; 86901; 93975; 99284